=== PATIENT | male | born 1955 | race Caucasian/White ===

== ENCOUNTER 2017-11-01 21:50 | Emergency (ER) | payer BC ==
[2017-11-01] MEDS: IPRATRPIUM/ALBUTEROL 0.5/2.5MG 3 ML NEBU. NEB (22:37)
[2017-11-01 22:39] LABS: INFLUENZA A PATIENT NEGATIVE (NEGATIVE); INFLUENZA B PATIENT NEGATIVE (NEGATIVE); OBC FLU VALID
== END 2017-11-01 23:11 | disposition home or self-care (01) ==
LOC: ER 21:50
DX: J20.9 Acute bronchitis, unspecified (principal); J15.9 Unspecified bacterial pneumonia; I10 Essential (primary) hypertension; Z88.8 Allergy status to other drugs, medicaments and biological substances
CPT/HCPCS: 71046; 87804; 87804-59; 94640; 99285-25; J7620

== ENCOUNTER → 2018-03-27 | Outpatient (CLI) | payer BC | END | disposition home or self-care (01) | LOC: KCIC MRI 12:48 | DX: M48.02 Spinal stenosis, cervical region (principal); M50.10 Cervical disc disorder with radiculopathy, unspecified cervical region; M62.81 Muscle weakness (generalized); M25.511 Pain in right shoulder; M25.78 Osteophyte, vertebrae | CPT/HCPCS: 72141 ==

== ENCOUNTER → 2018-04-21 | Outpatient (CLI) | payer BC ==
[2017-11-01 23:00] VITALS: BP 131/76
[~2018-04-21] MED LIST: CELE200C PO; CRESTOR20 MG PO; DOCU-109 PO; DOXY100C14 PO; FLUT16SP2 NS; HYDR-2758 PO; HYDR12.53 PO; LOSA50TA7 PO; METH750T2 PO; OMEP40CA5 PO
[2018-04-21 12:46] LABS: BASO # 0.1 x10^3/uL (0.0-0.2); BASO % 1 % (0-3); EOS # 0.2 x10^3/uL (0.0-0.7); EOS % 3 % (0-3); HEMATOCRIT 43.8 % (39.0-53.0); HEMOGLOBIN 15.3 g/dL (13.0-17.5); LYMPH # 1.6 x10^3/uL (1.0-4.8); LYMPH % 23 % (24-48); MEAN CORPUSCULAR HEMOGLOBIN 31 pg (25-35); MEAN CORPUSCULAR HGB CONC 35 g/dL (31-37); MEAN CORPUSCULAR VOLUME 89 fL (79-100); MONO # 0.7 x10^3/uL (0.0-1.1); MONO % 11 % (0-9); NEUT # 4.2 x10^3uL (1.8-7.7); NEUT % 62 % (31-73); PLATELET COUNT 337 x10^3/uL (140-400); RED BLOOD COUNT 4.94 x10^6/uL (4.30-5.70); RED CELL DISTRIBUTION WIDTH 13.4 % (11.5-14.5); WHITE BLOOD COUNT 6.7 x10^3/uL (4.0-11.0)
--- NOTE | 2018-04-21 12:54 | EKG ---
[facility] [address] [place] [address] Test Date: 2018-04-21 Test Time: 11:58:51 Pat Name: HERBERT OLIVAS Department: Room: Gender: M Otolaryngology [place] [facility] [place] 1955 Requested By: HERBERT DAVILA Order Number: [id number] Reading MD: Bony Clarke MD Measurements Intervals Hermon Rate: 64 P: 42 OH: 164 QRS: 57 QRSD: 90 T: 72 QT: 410 QTc: 427 Interpretive Statements SINUS RHYTHM Electronically Signed On 04-21-2018 17:14:43 CDT by Bony Clarke MD
[2018-04-21 13:11] LABS: ALBUMIN 3.9 g/dL (3.4-5.0); ALBUMIN/GLOBULIN RATIO 1.1 (1.0-1.7); CALCIUM 8.9 mg/dL (8.5-10.1); CREATININE 1.5 mg/dL (0.7-1.3); GFR 47.1; POTASSIUM 4.1 mmol/L (3.5-5.1); TOTAL BILIRUBIN 0.4 mg/dL (0.2-1.0); TOTAL PROTEIN 7.4 g/dL (6.4-8.2)
== END | disposition home or self-care (01) ==
LOC: SURGPAT 11:06
PROVIDERS: ATTEND Neurological Surgery
DX: M50.10 Cervical disc disorder with radiculopathy, unspecified cervical region (principal); M48.02 Spinal stenosis, cervical region; M19.90 Unspecified osteoarthritis, unspecified site; Z88.8 Allergy status to other drugs, medicaments and biological substances; Z82.49 Family history of ischemic heart disease and other diseases of the circulatory system; Z79.899 Other long term (current) drug therapy; Z96.641 Presence of right artificial hip joint; Z72.89 Other problems related to lifestyle; Z83.3 Family history of diabetes mellitus; Z82.0 Family history of epilepsy and other diseases of the nervous system
CPT/HCPCS: 36415; 80053; 85025; 87641; 93005

== ENCOUNTER → 2018-06-25 | Outpatient (CLI) | payer BC ==
[2018-05-01 05:32] VITALS: BP 129/73
--- NOTE | 2018-06-25 13:08 | RAD ---
Cervical spine, 2 views, 06/25/2018: HISTORY: Postop evaluation, neck pain Comparison is made to a study from 05/21/2016. An anterior surgical plate has been placed at the C3-4 level attached to those 2 vertebral bodies via 2 screws at each level. A surgical disc spacer with radiopaque components is present at the C3-4 disc level. Vertebral body alignment through this region appears to be anatomic. There is moderate disc space narrowing and marginal spurring at C5-6, C6-7 and C7-T1. There are degenerative changes involving scattered facet joints. No fracture or subluxation is evident. IMPRESSION: 1. Interval anterior spinal fusion and instrumentation at C3-4. 2. Moderate multilevel degenerative change. Electronically signed by: Jarod Patel MD (06/25/2018 1:05 PM) [facility]
== END | disposition home or self-care (01) ==
LOC: RAD 11:03
PROVIDERS: ATTEND Neurological Surgery
DX: M47.892 Other spondylosis, cervical region (principal); Z98.1 Arthrodesis status
CPT/HCPCS: 72040

== ENCOUNTER → 2018-09-10 | Outpatient (CLI) | payer BC ==
[2018-05-01 05:32] VITALS: BP 129/73
[~2018-09-10] MED LIST changes: -HYDR-2758 PO; +HYDR-2761 PO; -HYDR12.53 PO; +HYDR12.575 PO; +LOSA-73 PO; -LOSA50TA7 PO
--- NOTE | 2018-09-10 13:16 | KCIC ---
EXAM: Left knee, 3 views. HISTORY: Pain. COMPARISON: None. FINDINGS: 3 views of the left knee are obtained. There is a suspected small joint loose body within the left medial compartment. There is patellofemoral subchondral cyst formation. There is a small joint effusion. There is no fracture, dislocation or subluxation. IMPRESSION: 1. Small left knee effusion. 2. Left knee medial compartment joint loose body and mild patellofemoral compartment osteoarthritis. Electronically signed by: Barbie Hoover MD (09/10/2018 1:12 PM) [facility]
== END | disposition home or self-care (01) ==
LOC: KCIC 12:11
DX: M17.12 Unilateral primary osteoarthritis, left knee (principal); M25.862 Other specified joint disorders, left knee
CPT/HCPCS: 73562

== ENCOUNTER → 2018-09-29 | Outpatient (CLI) | payer BC ==
[2018-05-01 05:32] VITALS: BP 129/73
--- NOTE | 2018-09-29 10:10 | KCIC ---
EXAM: MRI LEFT KNEE DATE: 09/29/2018 8:45 AM CLINICAL INDICATION: Left knee pain, instability 3-4 weeks. Posterior lateral pain. COMPARISON: 09/10/2018 TECHNIQUE: Multiplanar, multisequence MRI of the LEFT knee was performed without contrast. FINDINGS: Moderate knee joint effusion. A joint body is seen at the posterior joint line posterior to the PCL measuring 7 mm. A 3 mm joint body is seen just deep to the popliteus myotendinous junction through the popliteus hiatus. Trace Geol's cyst. The ACL and PCL are intact. The MCL, fibular collateral ligament, biceps femoris and IT band are intact. Mild increased signal and thickening at the attachment of the popliteus tendon-moderate tendinosis. Extensor mechanism is intact with neutral patellar tracking. Full-thickness cartilage defect with central osteophyte within the patellar apex-lateral patellar facet measuring approximately 1.5 cm in craniocaudal dimension. Full-thickness cartilage defect measuring 4 mm at the medial weightbearing surface of the lateral femoral condyle. Medial meniscus: There is approximately 7 mm extrusion of the body segment of the medial meniscus. There is high-grade, near full-thickness radial tear of the body to the posterior horn of the medial meniscus. Lateral meniscus: Blunting of the body segment lateral meniscus with irregularity of the inferior articular surface extending to the posterior horn body junction consistent with radial tear. No evidence for fracture or AVN. IMPRESSION: 1. High-grade radial tear of the medial meniscus extending from the body segment to the posterior horn-root junction with associated extrusion of the body segment. 2. Radial tear body segment to the posterior horn body junction of the lateral meniscus. 3. Moderate knee joint effusion with several joint bodies including a joint body posterior to the PCL. 4. Medial and patellofemoral compartment predominant chondromalacia with regions of full-thickness cartilage defects. 5. Mild popliteus insertional tendinosis. Electronically signed by: Kulwinder Pompa MD (09/29/2018 10:06 AM) [email or web address]
== END | disposition home or self-care (01) ==
LOC: KCIC MRI 08:02
PROVIDERS: ATTEND Internal Medicine
DX: S83.242A Other tear of medial meniscus, current injury, left knee, initial encounter (principal); S83.282A Other tear of lateral meniscus, current injury, left knee, initial encounter; M25.462 Effusion, left knee; M25.762 Osteophyte, left knee; M22.42 Chondromalacia patellae, left knee; M76.892 Other specified enthesopathies of left lower limb, excluding foot; X58.XXXA Exposure to other specified factors, initial encounter; Y93.89 Activity, other specified; Y92.89 Other specified places as the place of occurrence of the external cause; Y99.8 Other external cause status
CPT/HCPCS: 73721

== ENCOUNTER → 2019-03-27 | Outpatient (CLI) | payer MEDICARE ==
[2018-05-01 05:32] VITALS: BP 129/73
--- NOTE | 2019-03-27 15:26 | KCIC ---
CERVICAL SPINE WO CONTRAST DATE: 03/27/2019 1:15 PM INDICATION: Cervical stenosis, prior ACDF, bilateral upper extreme numbness TECHNIQUE: Multiplanar multisequence magnetic resonance imaging of the cervical spine was performed without administration of intravenous contrast using the standard cervical spine protocol. COMPARISON: Cervical spine radiograph 06/25/2018. Cervical spine MRI 03/27/2018. FINDINGS: Postsurgical changes of ACDF at C3-4 with interbody spacer. Straightening of the cervical lordosis. No acute fracture. Moderate multilevel degenerative disc desiccation and disc height loss. Degenerative endplate edema at C5-6 and C7-T1. T2/STIR hyperintense spinal cord signal level of C3-4. On the limited views of the cranial cavity and brain, the cerebellum and víctor have normal morphology and signal characteristics. No Chiari malformation. No soft tissue abnormality. Normal signal voids are present in the vertebral arteries. C2-3: No significant spinal canal stenosis or neural foraminal narrowing. C3-4: Uncovertebral hypertrophy. Mild foraminal narrowing. Mild spinal stenosis. C4-5: Disc osteophyte complex. Uncovertebral hypertrophy. Moderate neural foraminal narrowing. Mild spinal stenosis. C5-6: Disc osteophyte complex. Moderate to severe neural foraminal narrowing. Mild spinal stenosis. Uncovertebral hypertrophy. C6-7: Disc complex hypertrophy. Mild right moderate left neural foraminal narrowing. No spinal stenosis. C7-T1: No significant spinal canal stenosis or neural foraminal narrowing. IMPRESSION: Cervical spondylosis, detailed level by level above. Interval ACDF at C3-4 with interbody spacer. Subtle abnormal T2/STIR hyperintense spinal cord signal at the level of C3-4 likely represents myelomalacia. Electronically signed by: Demian Sanchez MD (03/27/2019 3:23 PM) [facility]
== END | disposition home or self-care (01) ==
LOC: KCIC MRI 12:28
PROVIDERS: ATTEND Neurological Surgery
DX: M47.812 Spondylosis without myelopathy or radiculopathy, cervical region (principal); M48.03 Spinal stenosis, cervicothoracic region; M89.38 Hypertrophy of bone, other site; M25.78 Osteophyte, vertebrae; M53.82 Other specified dorsopathies, cervical region
CPT/HCPCS: 72141

== ENCOUNTER → 2019-10-26 | Outpatient (CLI) | payer MEDICARE ==
[2018-05-01 05:32] VITALS: BP 129/73
[~2019-10-26] MED LIST changes: +OMEP40CA45 PO; -OMEP40CA5 PO
--- NOTE | 2019-10-26 15:49 | EKG ---
[facility] [address] [place] [address] Test Date: 2019-10-26 Test Time: 15:06:08 Pat Name: HERBERT OLIVAS Department: Room: Gender: M Planning Management It Specialist: : 1955 Requested By: ISABEL GÓMEZ Order Number: [id number] Reading MD: Measurements Intervals Percival Rate: 75 P: 39 NH: 172 QRS: 48 QRSD: 98 T: 63 QT: 412 QTc: 463 Interpretive Statements SINUS RHYTHM QRS(T) CONTOUR ABNORMALITY CONSIDER INFERIOR INFARCT POSSIBLY ABNORMAL ECG RI6.02 Compared to ECG 04/21/2018 11:58:51 Myocardial infarct finding now present
== END | disposition home or self-care (01) ==
LOC: EKG 14:40
PROVIDERS: ATTEND Internal Medicine
DX: I21.9 Acute myocardial infarction, unspecified (principal); Z82.49 Family history of ischemic heart disease and other diseases of the circulatory system
CPT/HCPCS: 93005

== ENCOUNTER → 2019-10-26 | Outpatient (CLI) | payer MEDICARE, OTHER ==
[2018-05-01 05:32] VITALS: BP 129/73
--- NOTE | 2019-10-26 16:06 | KCIC ---
3 view study of the left shoulder Clinical indications: Left shoulder arthritis. Left shoulder pain for 8 months. No known injury. FINDINGS: No acute fracture or dislocation or lytic process is seen. There is mild degenerative osteoarthritis and spurring of the left AC joint. No AC joint separation is seen. IMPRESSION: No acute fracture. There is mild chronic cystic change of the lateral aspect of the left humeral head. Chronic impingement of the acromial humeral space is possible. Electronically signed by: Jonathan Boyle MD (10/26/2019 4:04 PM) [facility]
== END | disposition home or self-care (01) ==
LOC: KCIC 13:44
PROVIDERS: ATTEND Internal Medicine
DX: M13.812 Other specified arthritis, left shoulder (principal); M75.81 Other shoulder lesions, right shoulder; M25.811 Other specified joint disorders, right shoulder
CPT/HCPCS: 73030

== ENCOUNTER → 2019-10-28 | Outpatient (CLI) | payer MEDICARE ==
[2018-05-01 05:32] VITALS: BP 129/73
--- NOTE | 2019-10-28 16:50 | RAD ---
EXAM: Carotid Doppler sonogram. HISTORY: Pain. TECHNIQUE: Barrera scale and color Doppler sonographic evaluation of the neck with spectral waveform analysis was performed and static images are submitted for review. FINDINGS: The peak systolic velocity within the right common carotid artery is 95 cm/sec. The peak systolic velocity within the right internal carotid artery is 97 cm/sec and the end diastolic velocity within the right internal carotid artery is 35 cm/sec. The right ICA/CCA ratio is 1.08. The peak systolic velocity within the left common carotid artery is 120 cm/sec. The peak systolic velocity within the left internal carotid artery is 89 cm/sec and the end diastolic velocity within the left internal carotid artery is 35 cm/sec. The left ICA/CCA ratio is 0.97. There is normal antegrade flow within both vertebral arteries. IMPRESSION: No Doppler evidence of hemodynamically significant stenosis. PQRS Compliance Statement - Stenosis calculations for CT, MR and conventional angiography are based upon measurement of the distal ICA diameter in accordance with the NASCET methodology. Stenosis calculations for carotid ultrasound studies are derived from validated velocity criteria which are known to correlate with the NASCET methodology. Electronically signed by: Barbie Hoover MD (10/28/2019 4:47 PM) [id number]
== END ==
LOC: US 15:25
PROVIDERS: ATTEND Internal Medicine
DX: M54.2 Cervicalgia (principal)
CPT/HCPCS: 93880

== ENCOUNTER → 2020-03-24 | Outpatient (CLI) | payer MEDICARE ==
[2018-05-01 05:32] VITALS: BP 129/73
--- NOTE | 2020-03-24 15:46 | KCIC ---
Examination: MRI of the left shoulder without contrast HISTORY: History of left upper extremity numbness COMPARISON: None available TECHNIQUE: Multiplanar, multisequence MR imaging of the left shoulder performed without contrast Findings: The long head of the biceps tendon within the bicipital groove. The attachment of the long head the biceps tendon to the superior labral anchor grossly appears intact. Moderate increased T2 signal identified in the subscapularis tendon likely tendinosis. The attachment of the subscapularis tendon, supraspinatus, infraspinatus tendons appear intact. There is moderate increased signal identified in the supraspinatus, infraspinatus tendons likely tendinosis. The visualized labrum grossly appears unremarkable. Mild degenerative changes acromioclavicular joint. Acromion is type II. The muscle bulk grossly appears unremarkable. There is obscuration of fat in the rotator interval. IMPRESSION: 1. Moderate tendinosis of the rotator cuff most in the subscapularis tendon. 2. Obscuration of fat in the rotator interval. Correlate for adhesive capsulitis. Electronically signed by: Bayron Charles MD (03/24/2020 3:43 PM) [id number]
--- NOTE | 2020-03-24 15:51 | KCIC ---
EXAM: Cervical spine MRI without contrast. HISTORY: Left shoulder pain. Left upper extremity numbness. TECHNIQUE: Multiplanar, multisequence magnetic resonance imaging of the cervical spine was performed without contrast. COMPARISON: MRI dated 03/27/2019. FINDINGS: There is instrumented anterior spinal fusion and interbody fusion at C3-C4. There is mild anterolisthesis of C4 on C5 and mild reversal of cervical curvature. There is degenerative endplate remodeling with osteophytosis at all levels. There is disc space narrowing and Schmorl's node formation at multiple levels. There is a left lateral wedge compression deformity associated with a Schmorl's node at T1. No acute or subacute fracture is seen. There is deformation of the cervical spinal cord at multiple levels due to central canal stenosis. There is a focus of suspected myelomalacia within the cervical spinal cord at C4. At C2-C3, there is a disc bulge and left lateral predominant endplate osteophytosis. There is mild right and moderate left facet arthropathy. There is no stenosis. At C3-C4, there is instrumented fusion. There is a disc bulge and endplate osteophytosis. There is mild right and moderate left facet arthropathy. There is uncovertebral arthropathy. There is mild right greater than left foraminal stenosis. There is deformation of the left ventral aspect of the spinal cord and mild to moderate central canal stenosis measuring 8.2 mm in anterior posterior dimension. At C4-C5, there is a disc bulge and endplate remodeling. There is severe right and moderate left facet arthropathy. There is uncovertebral arthropathy. There is moderate bilateral foraminal stenosis. At C5-C6, there is a disc bulge and endplate osteophytosis. There is moderate bilateral facet arthropathy. There is uncovertebral arthropathy. There is moderate right and severe left foraminal stenosis. There is slight flattening of the ventral aspect of the spinal cord and mild central canal stenosis measuring 8.5 mm anterior posterior dimension. At C6-C7, there is endplate remodeling. There is mild bilateral facet arthropathy. There is mild left foraminal stenosis. At C7-T1, there is a disc bulge and endplate remodeling. There is mild bilateral facet arthropathy. There is no stenosis. IMPRESSION: 1. Multilevel degenerative change involving the cervical spine, described in detail above. This is associated with mild right greater than left foraminal and mild to moderate central canal stenosis at C3-C4, moderate neural foraminal stenosis at C4-C5, moderate right and severe left foraminal and mild central canal stenosis at C5-C6, and mild left foraminal stenosis at C6-C7. Findings are not significantly changed compared to the prior exam, allowing for devices in technique. 2. Stable small focus of suspected myelomalacia involving the cervical spinal cord at C4. Electronically signed by: Barbie Hoover MD (03/24/2020 3:48 PM) [id number]
== END ==
LOC: KCIC MRI 13:19
PROVIDERS: ATTEND Internal Medicine
DX: M47.22 Other spondylosis with radiculopathy, cervical region (principal); M75.02 Adhesive capsulitis of left shoulder; M75.42 Impingement syndrome of left shoulder; M13.812 Other specified arthritis, left shoulder; R93.6 Abnormal findings on diagnostic imaging of limbs; M75.82 Other shoulder lesions, left shoulder; M48.02 Spinal stenosis, cervical region; Z98.890 Other specified postprocedural states
CPT/HCPCS: 72141; 73221

== ENCOUNTER → 2020-04-18 | Outpatient (CLI) | payer MEDICARE ==
[2018-05-01 05:32] VITALS: BP 129/73
--- NOTE | 2020-04-18 14:39 | PDOC2 ---
INITIAL PAIN CONSULT DATE OF SERVICE: DOS: DATE: 04/18/20 TIME: 14:29 CHIEF COMPLAINT: Chief Complaint: Neck and left upper extremity pain HISTORY OF PRESENT ILLNESS: 64-year-old male presents with history of pain base the neck and left upper extremity for about 2 years now. Patient reports he had a anterior cervical discectomy and fusion 2018 which helped the pain he was having at the time but now has different pain and numbness and tingling in the left arm and hand. Patient reports its worse with activity repetitive motions reaching over his head with his left arm weakness and from sleep at least 1-3 times a night does not affect his bowel bladder control or stability to walk a reports his balance is better after his anterior cervical fusion but the pain is now more noticeable over the past 6 to 8 months in the left arm with tingling and is constantly tingling now in the left hand specially the thumb and the first finger but some in the little finger as well. Patient reports occasional pain in the right side but mostly just on the left. Worse with repetitive activity turning the neck more to the left side but with good extension right left lateral rotation without increase in pain patient rates his disability rating 0-10 10 being the worst as a 3-4 with family home responsibilities to with recreation social activity occupation sexual behavior self-care and life support activities. Patient did have MRI scan of the cervical spine showing multilevel degenerative change moderate neuroforaminal stenosis at C4-5 with moderate right and severe left foraminal and mild central canal stenosis at C5-6 and mild left foraminal stenosis at C6-7. Patient reports no overt loss of motor function but significant fatigability and dropping items with his left hand compared to the right. PAST MEDICAL HISTORY: PMH: Hypertension hyperlipidemia, arthritis, headaches, seizures, tremors, balance issues, tinnitus PREVIOUS SURGERIES: Past Surgical Hx: Anterior cervical fusion 2018, right elbow surgery, right total hip replacement x2, pinning right fifth finger, right rotator cuff repair, left foot surgery, bilateral carpal tunnel release, hemorrhoidectomy. CURRENT MEDICATIONS: Current Meds: Active Scripts Medications Dose Route/Sig Max Daily Dose Days Date Category Crestor (Rosuvastatin Calcium) 20 Mg Tablet 20 Mg PO HS 04/21/18 Reported Hydrochlorothiazide Capsule (Hydrochlorothiazide) 12.5 Mg Capsule 1 Cap PO DAILY 09/16/14 Reported ALLERGIES; Allergies: Coded Allergies: atorvastatin (Verified Allergy, Intermediate, 04/30/18) FAMILY HISTORY: Family Hx: No major medical problems or conditions that he is aware of. SOCIAL HISTORY: Social Hx: Patient drinks alcohol about 1-2 beers a week not use any illegal illicit or recreational drugs does not smoke is lives with his spouse lives locally in [place] [facility]. Patient reports he is currently retired REVIEW OF SYSTEMS: ROS: Patient's review of systems is positive for those items mentioned in history of present illness is complete full and well-documented on patient's chart. PHYSICAL EXAM: VS: Pressure is 149/86 pulse 84 respiration 16 temperature is 98.5 F height is 5 feet 11 inches weight is 2 1 0 pounds PE: PHYSICAL EXAMINATION: GENERAL: The patient is awake, alert, oriented, appropriate, very pleasant demeanor HEENT: Shows normocephalic, atraumatic. Extraocular movements are intact and symmetrical. Oral cavity: Mucous membranes moist and pink. Dentition is intact. NECK: Shows anterior throat supple without palpable lymphadenopathy noted. Swallow reflex symmetrical. CHEST: Shows normal on inspection. Breath sounds are clear bilaterally. HEART: Shows S1, S2 clear. No murmurs auscultated. ABDOMEN: Soft, nontender, nondistended. No palpable organomegaly is noted. No rebound or guarding demonstrated. BACK: Shows spine grossly in the midline. Normal-appearing cervical lordotic curvature posterior cervical musculature is symmetrical with inspection with palpation shows some moderate tenderness bilaterally in the middle and lower distribution the paraspinous muscles in the cervical distribution but without asymmetry without atrophy or hypertrophy. No trigger points are identified no radiation pain is demonstrated no tenderness over the spinous processes. There is a moderate tenderness into the left superior medial trapezius as well but without trigger points without significant atrophy hypertrophy or asymmetry co mpared to the right. Neck shows good rotation motion both laterally greater than 45 degrees closer to 90 degrees as well as full extension full forward flexion without significant increase in pain.. There is slightly increased thoracic kyphosis, some minor flattening of the lumbar lordotic curvature. Lumbar paraspinous muscles show symmetrical on inspection, on palpation shows s ome moderate tenderness diffusely throughout the upper, middle and lower distribution of the paraspinous muscles without specific trigger points, without radiation of pain. The patient has good rotational motion of the lumbar spine, both laterally as well as extension and flexion without significant difficulty. No tenderness over the spinous processes, sacrum or sacroiliac regions. EXTREMITIES: Upper extremities show deep tendon reflexes 2+ in the biceps and tricep tendons. Motor exam is 4 on a scale of 5 with right biceps and triceps flexion and 4/5 on the left. Peripheral pulses are 2+ radial. No peripheral edema is noted bilaterally. Upper extremities are warm and dry to touch, equal in color and appearance. Patient shows good rotation motion of the shoulders both actively and passively. Shoulder shrug is strong and intact without loss of strength on resistance as is abduction of the shoulders at 90 degrees but with some moderate pain in the left with resistance but no loss of strength on resistance. This is true with abduction as well as shoulder shrug on the left. SKIN: Shows warm and dry, good turgor. No edema. No sores, rashes or bruising throughout. IMPRESSION: Impression: Is a 64-year-old male with approximate 2-year history increasing pain and numbness and tingling base of the neck and left upper extremity in a radicular fashion. MRI scan cervical spine as noted. Arthritis Hypertension Hyperlipidemia Plan: Options were discussed with the patient including conservative medical management physical therapies interventional techniques and he like to pursue interventional techniques however he does have a significantly high co-pay with his insurance premium we discussed some other options and will try Medrol Dose helen initially first to see how he does with this. Patient was given instruction as well as side effects beware with the medication and we discussed that if he has a significant decrease in pain with the medication we may be prompted to try cervical epidural steroid injection in hopes of longer lasting pain control. Patient understands and agrees will take the medication will follow-up as scheduled. SANTA BARTLETT MD Apr 18, 2020 14:39
== END | disposition home or self-care (01) ==
LOC: PNCL 13:10
PROVIDERS: ATTEND Anesthesiology
DX: M54.2 Cervicalgia (principal); M79.602 Pain in left arm; I10 Essential (primary) hypertension; E78.5 Hyperlipidemia, unspecified; M19.90 Unspecified osteoarthritis, unspecified site; Z98.890 Other specified postprocedural states; Z79.899 Other long term (current) drug therapy; Z88.8 Allergy status to other drugs, medicaments and biological substances; Z96.641 Presence of right artificial hip joint
CPT/HCPCS: G0463

== ENCOUNTER → 2020-11-03 | Outpatient (CLI) | payer MEDICARE ==
[2018-05-01 05:32] VITALS: BP 129/73
[~2020-11-03] MED LIST changes: +METH-562 PO; -METH750T2 PO
--- NOTE | 2020-11-03 13:06 | KCIC ---
L-spine 2 views INDICATION: Lumbago with sciatica on the right side since 06/21/2020 COMPARISON: L-spine x-rays of 08/15/2016 FINDINGS: There is exaggeration of normal lumbar lordosis. There is subtle anterolisthesis at L5-S1 noted. This is more apparent in the interval. No acute fracture or aggressive bony lesions are seen. Facet hypertrophic changes are present at L4-5 and L5-S1. The discs show mild narrowing at L5-S1, slightly progressed in the interval. No bony central canal stenosis is appreciated. No bony foraminal stenosis is seen either. The soft tissues show aortic calcifications. Incidental right hip arthroplasty. The sacroiliac joints are unremarkable. IMPRESSION: Relatively mild lumbar spinal degenerative spondylosis with slight interval progression in degenerati ve changes at the lumbosacral junction. Electronically signed by: Emily Blackwood MD (11/03/2020 1:03 PM) [id number]
== END ==
LOC: KCIC 09:13
PROVIDERS: ATTEND Internal Medicine
DX: M47.817 Spondylosis without myelopathy or radiculopathy, lumbosacral region (principal); M48.07 Spinal stenosis, lumbosacral region; M43.17 Spondylolisthesis, lumbosacral region
CPT/HCPCS: 72100

== ENCOUNTER 2021-07-10 17:09 | Emergency (ER) | payer MEDICARE ==
[2018-05-01 05:32] VITALS: BP 129/73
[~2021-07-10 17:09] MED LIST changes: +DOXY-181 PO; -DOXY100C14 PO; -OMEP40CA45 PO; +OMEP40CA7 PO
== END 2021-07-10 17:10 | disposition left against medical advice (07) ==
LOC: ER 17:09
DX: S61.216A Laceration without foreign body of right little finger without damage to nail, initial encounter (principal); Z53.21 Procedure and treatment not carried out due to patient leaving prior to being seen by health care provider; X58.XXXA Exposure to other specified factors, initial encounter; Y93.89 Activity, other specified; Y92.89 Other specified places as the place of occurrence of the external cause; Y99.8 Other external cause status

== ENCOUNTER → 2021-11-09 | Outpatient (CLI) | payer MEDICARE ==
[2018-05-01 05:32] VITALS: BP 129/73
--- NOTE | 2021-11-09 09:15 | KCIC ---
EXAM: XR EYE_DETECT FOREIGN BODY 11/09/2021 9:00 AM CLINICAL INDICATION: Possible metal in left eye. Screening for MRI. COMPARISON: None TECHNIQUE: 2 views of the orbits FINDINGS: There is no metallic foreign body in the orbits. IMPRESSION: No metallic foreign body in the orbits. Electronically signed by: Ning Goldstein MD (11/09/2021 9:13 AM) [id number]
--- NOTE | 2021-11-09 13:01 | KCIC ---
MR CERVICAL SPINE WO DATE: 11/09/2021 8:55 AM INDICATION: CERVICAL RADICULOPATHY. Prev anterior surgery, 2019. Chronic CLINE's BUE numbness and weakn ess. TECHNIQUE: Multiplanar multisequence magnetic resonance imaging of the cervical spine was performed w ithout administration of intravenous contrast using the standard cervical spine protocol. COMPARISON: 03/24/2020. FINDINGS: Postsurgical changes of ACDF at C3-4. Reversal of the cervical lordosis. Trace anterolisthesis at C4-5. No acute fracture. Moderate multil evel degenerative disc desiccation and disc height loss. Degenerative endplate edema at C7-T1. Unchanged abnormal spinal cord signal and volume loss at C3-4 consistent with myelomalacia. On the limited views of the cranial cavity and brain, the cerebellum and ívctor have normal morphology and signal characteristics. No Chiari malformation. No soft tissue abnormality. Normal signal voids are present in the vertebral arteries. C2-3: Disc osteophyte complex. Uncovertebral hypertrophy. Mild facet arthropathy. Mild neural foramin al narrowing. No spinal canal stenosis. C3-4: Disc osteophyte complex with left paracentral protrusion. Uncovertebral hypertrophy. Mild facet arthropathy. Mild bilateral neural foraminal narrowing. Mild to moderate spinal canal stenosis. C4-5: Disc osteophyte complex. Uncovertebral hypertrophy. Severe right and moderate left facet arthro ariana. Moderate bilateral neural foraminal narrowing. Mild spinal canal stenosis. C5-6: Disc osteophyte complex. Uncovertebral hypertrophy. Mild facet arthropathy. Moderate right and severe left neural foraminal narrowing. Mild spinal canal stenosis. C6-7: Disc osteophyte complex. Uncovertebral hypertrophy. Mild facet arthropathy. Mild left neural fo raminal narrowing. No spinal canal stenosis. C7-T1: Disc osteophyte complex. Uncovertebral hypertrophy. Mild left neural foraminal narrowing. No s radha canal stenosis. IMPRESSION: Moderate to severe cervical spondylosis, not significantly changed from the prior. No severe spinal c anal stenosis. Severe neural foraminal narrowing at C5-6 on the left. Electronically signed by: Demian Sanchez MD (11/09/2021 12:59 PM) [id number]
== END ==
LOC: KCIC MRI 08:38
PROVIDERS: ATTEND Internal Medicine
DX: G44.209 Tension-type headache, unspecified, not intractable (principal); G95.89 Other specified diseases of spinal cord; M47.22 Other spondylosis with radiculopathy, cervical region; M48.02 Spinal stenosis, cervical region; M48.8X2 Other specified spondylopathies, cervical region; M50.31 Other cervical disc degeneration, high cervical region
CPT/HCPCS: 70030; 72141